=== PATIENT | male | born 1980 | race Caucasian/White ===

== ENCOUNTER 2020-03-31 09:31 | Emergency (ER) | payer OTHER ==
[~2020-03-31] VITALS: Ht 182.9 cm; Wt 117.9 kg
[2020-03-31 09:46] VITALS: BP 181/76
[2020-03-31] MEDS ORDERED: JANTOVEN2 MG PO (09:55)
[2020-03-31] MEDS ORDERED: LISINOPRIL PO (09:56)
[2020-03-31] MEDS ORDERED: CARVEDILOL12.5 MG PO (09:57)
[2020-03-31] MEDS ORDERED: LIPITOR 20 MG T20 M1 PO (09:58)
[2020-03-31] MEDS ORDERED: KEFLEX500 M1 PO (10:35)
[2020-03-31] MEDS ORDERED: NORCO 5-325 TA1 EAC2 PO (10:35)
[2020-03-31] MEDS ORDERED: BACTRIM DS TAB1 EACH PO (10:35)
[2020-03-31] MEDS ORDERED: ZOFRAN ODT4 MG SUBLING (10:35)
== END 2020-03-31 10:54 | disposition home or self-care (01) ==
LOC: M.ERS 09:31
DX: L02.415 Cutaneous abscess of right lower limb (principal); I50.9 Heart failure, unspecified